=== PATIENT | male | born 1940 | race Caucasian/White ===

== ENCOUNTER 2017-03-12 08:04 | Day surgery (SDC) | payer OTHER ==
--- NOTE | ~2017-03-12 | EGD ---
EGD REPORT [facility] [address] [place] [address] NAME: WENDI VYAS : 40 STATUS : REG [facility]#: [id number] AGE: 76 ADM/REG DATE : 03/12/17 MR#: [id number] REPORT SERV DATE: 03/12/17 DICTATED BY: JENNIFER MURRIETA DATE: 03/12/17 REPORT STATUS : Draft [facility]ANS[facility] BY: [facility] DATE: 03/12/17 [facility] Center Patient Name: Wendi Vyas Date of : 1940 Attending MD: JENNIFER MURRIETA MD Procedure Date No Time: 03/12/2017 Procedure: Upper GI endoscopy Indications: Follow-up of gastric nodules antrum. Patient Profile: Informed consent was obtained from the patient by me prior to the procedure. Risks, benefits, and alternatives were discussed including the risk of bleeding, perforation, infection, reaction to medicine, missed lesion, and cardiopulmonary complications. Referring MD: FAYE CARO MD Medicines: Monitored Anesthesia Care Complications: No immediate complications. Procedure: Pre-Anesthesia Assessment: - ASA Grade Assessment: IV - A patient with severe systemic disease that is a constant threat to life. After obtaining informed consent, the endoscope was passed under direct vision. Throughout the procedure, the patient's blood pressure, pulse, and oxygen saturations were monitored continuously. The GIF [id number] was introduced through the mouth, and advanced to the second part of duodenum. The endoscope was withdrawn with careful examination all mucosal surfaces including retroflexion stomach.The upper GI endoscopy was accomplished without difficulty. The patient tolerated the procedure well. Findings: The examined duodenum was normal. A single large papule (nodule) was found in the gastric antrum, similar to previous. Biopsies were taken with a cold forceps for histology. A single medium-sized papule (nodule) was found in the gastric antrum, similar to previous, suspect pancreatic rest, dimple center. Biopsies were taken with a cold forceps for histology. The cardia, gastric fundus and gastric body were normal. The examined esophagus was normal. Impression: - Normal examined duodenum. - A single large papule (nodule) with was found in the stomach. Biopsied. - A single medium-sized papule (nodule) with was found in the stomach. Biopsied. EGD REPORT [address] [address] NAME: WENDI VYAS : 40 STATUS : REG [facility]#: [id number] AGE: 76 ADM/REG DATE : 03/12/17 MR#: [id number] REPORT SERV DATE: 03/12/17 DICTATED BY: JENNIFER MURRIETA DATE: 03/12/17 REPORT STATUS : Draft TRANSCRIBED BY: [facility] DATE: 03/12/17 - Normal cardia, gastric fundus and gastric body. - Normal esophagus. Recommendation: - Patient has a contact number available for emergencies. The signs and symptoms of potential delayed complications were discussed with the patient. Return to normal activities tomorrow. Written discharge instructions were provided to the patient. - Regular diet. - Continue present medications. - Await pathology results. Procedure Code(s): --- Professional --- 49282, Esophagogastroduodenoscopy, flexible, transoral; with biopsy, single or multiple Diagnosis Code(s): --- Professional --- K31.9, Disease of stomach and duodenum, unspecified K31.7, Polyp of stomach and duodenum CPT copyright 2013 [employer]. All rights reserved. The codes documented in this report are preliminary and upon scout review may be revised to meet current compliance requirements. JENNIFER MURRIETA MD 03/12/2017 10:01 AM This report has been signed electronically. Number of Addenda: 0 Note Initiated On: 03/12/2017 9:29 AM Scope Withdrawal Time 0 hours 0 minutes 0 seconds [id number] [place] [id number]
[~2017-03-12 08:04] MED LIST: C25 PO; COMBIVENT INH; FERRETTS325 MG PO; FERROUS SULF325 M1 PO; GLUCOPHAGE1000 MG PO; GLUCOTROL5 PO; IRON; L40 PO; LEVEMFLXPN SC; LOP25 PO; MICARDIS HC1 PO; PLAVIX PO; PRIN10 PO; PRIN2.5 PO; PROTONIX PO; TRICOR145 PO; XARELTO20 MG PO; ZOCOR40 PO
[2017-03-12 08:57] LABS: CALCIUM, SERUM 9.5 MG/DL (8.5-10.4); CHLORIDE, SERUM 103 MMOL/L (96-112); CO2 (CARBON DIOXIDE) 29 MMOL/L (24-34); CREATININE 1.92 MG/DL (0.70-1.30); GFR AFRICAN AMERICAN 38 ML/MIN (>=60); GFR NON AFRICAN AMERICAN 33 ML/MIN (>=60); GLUCOSE, SERUM 190 MG/DL (60-99); POTASSIUM, SERUM 4.2 MMOL/L (3.5-5.3); SODIUM, SERUM 141 MMOL/L (135-148)
[2017-03-12 09:00] LABS: BUN (BLOOD UREA NITROGEN) 29 MG/DL (6-23)
== END 2017-03-12 23:59 | disposition home or self-care (01) ==
LOC: DMU 08:04
PROVIDERS: Internal Medicine Gastroenterology
PROC: 0DB78ZX Excision of Stomach, Pylorus, Via Natural or Artificial Opening Endoscopic, Diagnostic (ICD-10-PCS; 2017-03-12)
PROC: 0DB68ZX Excision of Stomach, Via Natural or Artificial Opening Endoscopic, Diagnostic (ICD-10-PCS; principal; 2017-03-12 09:00)
DX: K31.7 Polyp of stomach and duodenum (principal); K31.9 Disease of stomach and duodenum, unspecified; K29.70 Gastritis, unspecified, without bleeding; E78.00 Pure hypercholesterolemia, unspecified; I25.10 Atherosclerotic heart disease of native coronary artery without angina pectoris; I48.91 Unspecified atrial fibrillation; G47.33 Obstructive sleep apnea (adult) (pediatric); I12.9 Hypertensive chronic kidney disease with stage 1 through stage 4 chronic kidney disease, or unspecified chronic kidney disease; E11.22 Type 2 diabetes mellitus with diabetic chronic kidney disease; N18.9 Chronic kidney disease, unspecified; D64.9 Anemia, unspecified; Z98.890 Other specified postprocedural states
CPT/HCPCS: 80048; 88305